=== PATIENT | male | born 1985 | race Caucasian/White ===

== ENCOUNTER 2020-06-12 04:02 | Emergency (ER) | payer OTHER ==
[~2020-06-12] VITALS: Ht 180.3 cm; Wt 102.2 kg
--- NOTE | 2020-06-12 04:07 | PHYS DOC ---
General Adult EDM: Chief Complaint: left ear pain HPI: HPI: Patient is a 34 year old male who presents for evaluation of moderate to severe left ear pain. Symptom onset earlier this evening. There is no drainage from the ear. There is no reported fevers and chills. The pain does radiate from his ear to the left side of his face. Patient drove himself to the hospital. Presenting blood pressure was 189/139 but we will recheck shortly. Review of Systems: Review of Systems: Constitutional: Denies fever or chills Eyes: Denies change in visual acuity HENT: Denies nasal congestion or sore throat, severe left ear pain Respiratory: Denies cough or shortness of breath Cardiovascular: Denies chest pain or edema GI: Denies abdominal pain, nausea, vomiting, bloody stools or diarrhea : Denies dysuria Musculoskeletal: Denies back pain or joint pain Integument: Denies rash Neurologic: Denies headache, focal weakness or sensory changes Endocrine: Denies polyuria or polydipsia Lymphatic: Denies swollen glands Psychiatric: Denies depression or anxiety Heart Score: Risk Factors: Risk Factors: DM, Current or recent (<one month) smoker, HTN, HLP, family history of CAD, obesity. Risk Scores: Score 0 - 3: 2.5% MACE over next 6 weeks - Discharge Home Score 4 - 6: 20.3% MACE over next 6 weeks - Admit for Clinical Observation Score 7 - 10: 72.7% MACE over next 6 weeks - Early Invasive Strategies Physical Exam: PE: Constitutional: Well developed, well nourished, moderate acute distress, non- toxic appearing. [] HENT: Normocephalic, atraumatic, bilateral external ears normal, oropharynx moist, no oral exudates, nose normal, neither tympanic membrane clearly visualize due to wax buildup. [] Eyes: PERRL, EOMI, conjunctiva normal, no discharge. [] Neck: Normal range of motion, no tenderness, supple, no stridor. [] Cardiovascular:Heart rate regular rhythm, no murmur [] Lungs & Thorax: Bilateral breath sounds clear to auscultation [] Abdomen: Bowel sounds normal, soft, no tenderness, no masses. [] Skin: Warm, dry, no erythema, no rash. [] Back: No tenderness. [] Extremities: No tenderness, no cyanosis, ROM intact, no edema. [] Neurologic: Alert and oriented X 3, normal motor function, normal sensory function, no focal deficits noted. [] Psychologic: Affect normal, judgement normal, mood normal. [] EKG: EKG: [] Radiology/Procedures: Radiology/Procedures: [] Course & Med Decision Making: Course & Med Decision Making Pertinent Labs and Imaging studies reviewed. (See chart for details) [] Dragon Disclaimer: Dragon Disclaimer: This electronic medical record was generated, in whole or in part, using a voice recognition dictation system. 0425 left ear rechecked after nursing staff flushed with warm saline thoroughly. Several large chunks of earwax were removed. Part of the eardrum is now partially visualized and it was erythematous. There was some canal erythema as well. No bleeding however. No obvious evidence of a ruptured eardrum 0503 patient states left ear pain is persistent but improved. Blood pressure now 150/109. Prescription for tramadol and amoxicillin given. Referral to ENT given as well for Dr. Daly Carrasco [place] Departure: Impression: Primary Impression: Left acute otitis media Additional Impressions: Impacted cerumen of both ears Elevated blood pressure reading Disposition: HOME/RESIDENCE PRIOR TO ADM Condition: STABLE Referrals: PCP,NO (PCP) Patient Instructions: Cerumen Impaction, Managing Your High Blood Pressure, Otitis Media, Adult Additional Instructions: Have your doctor recheck your ear in the next couple of days or you can see your nose and throat specialist such as Dr. Daly Carrasco at [phone], use Cortisporin eardrops 4 drops 4 times a day left ear for the next 5 to 7 days Scripts Tramadol Hcl (TRAMADOL HCL) 50 Mg Tablet 50 MG PO PRN Q6HRS PRN for PAIN, #10 TAB Prov: DENISHA TROTTER DO 06/12/20 Amoxicillin (AMOXICILLIN) 875 Mg Tablet 1 TAB PO BID for otitis media, #14 TAB Prov: DENISHA TROTTER DO 06/12/20 Justification of Admission: Justification of Admission: Justification of Admission Dx: N/A DENISHA TROTTER DO Jun 12, 2020 04:07
[2020-06-12] MEDS ORDERED: KETOROLAC 15 MG/ML VIAL. IVP ONE (04:30)
[2020-06-12] MEDS ORDERED: traMADol 50 MG TABLET PO ONE (04:30)
[2020-06-12] MEDS ORDERED: NEOMYCIN/POLYMYXIN/HC OTIC SUSPENSION 10ML BOTTLE. AS ONE (04:30)
[2020-06-12] MEDS ORDERED: TRAM50TA PO (04:35)
[2020-06-12] MEDS ORDERED: AMOX875T PO (04:35)
[2020-06-12] MEDS ORDERED: KETOROLAC 30 MG/ML VIAL. ONE (05:00)
[2020-06-12] MEDS ORDERED: KETOROLAC 30 MG/ML VIAL. IM ONE (05:00)
[2020-06-12] MEDS ORDERED: KETOROLAC 60 MG/2 ML VIAL. IM ONE (05:00)
[2020-06-12 05:25] VITALS: BP 150/107
== END 2020-06-12 05:28 | disposition home or self-care (01) ==
LOC: ER 04:02
DX: H66.92 Otitis media, unspecified, left ear (principal); H61.23 Impacted cerumen, bilateral; R03.0 Elevated blood-pressure reading, without diagnosis of hypertension
CPT/HCPCS: 69209; 96372; 99284; J1885

== ENCOUNTER 2020-06-14 18:54 | Emergency (ER) | payer OTHER ==
[~2020-06-14] VITALS: Ht 180.3 cm; Wt 102.2 kg
[~2020-06-14 18:54] MED LIST: AMOX875T PO; TRAM50TA PO
[2020-06-14 19:00] VITALS: BP 158/97
--- NOTE | 2020-06-14 19:45 | PHYS DOC ---
Past History Past Medical History: No Pertinent History Past Surgical History: No Surgical History Alcohol Use: None General Adult EDM: Chief Complaint: MULTIPLE COMPLAINTS HPI: HPI: 34 yo M presents to the ed with c/o red/yellow drainage from his left ear with associated dizziness with certain head positions and nausea. States it's difficult to hear out of his left ear but the pain he was experiencing has resolved. Denies any trauma to the ear. Patient was prescribed amoxicillin, Cortisporin and tramadol 2 days ago in ed, diagnosed with bilateral cerumen impaction left otitis media. Reports he has to fly in 4 days due to the drainage wanted to get it checked out to see if it was he healing appropriately. Has been on antibiotics for only 3 days. Denies any falls or head trauma. ROS: Denies associated fever, chills, headache, blurry vision, neck pain, neck stiffness, sore throat, cough, chest pain or pressure, syncope, neurologic deficits including sensory or motor deficits, changes in voice, drooling or other concerning symptoms. Allergies: Allergies: Allergies Coded Allergies Type Severity Reaction Last Updated Verified No Known Drug Allergies 06/12/20 No Physical Exam: PE: Constitutional: Well developed, well nourished, no acute distress, non-toxic appearance. [] Afebrile HENT: Normocephalic, atraumatic, right ear w/ cerumen impaction, left ear clear with some erythema of the external canal around 6 o'clock position, entire left tympanic membrane is erythematous with bulging TM w/air/fluid level, pt w/kleenexes in external canal-yellow/red drainage, no mastoid tenderness, no obliteration of auricular crease, near symmetric Eyes: EOMI, conjunctiva normal, no discharge. [] Neck: Normal range of motion, no tenderness, supple, no stridor. [] No meningismus Cardiovascular:Heart rate regular rhythm, no murmur [] Lungs & Thorax: Speaking in full sentences, equal chest rise Abdomen: soft, no tenderness, Skin: Warm, dry, no erythema, no rash. [] Back: No midline or cva tenderness, Extremities: No tenderness, no cyanosis, no clubbing, no edema. [] Neurologic: Alert and oriented X 3, normal motor function, normal sensory function, no focal deficits noted. [] Psychologic: Affect normal, judgement normal, mood normal. [] Current Patient Data: Vital Signs: Vital Signs Date Time Temp Pulse Resp B/P (MAP) Pulse Ox O2 Delivery O2 Flow Rate FiO2 06/14/20 19:00 98.1 94 18 158/97 (117) 98 Room Air EKG: EKG: [] Radiology/Procedures: Radiology/Procedures: [] Course & Med Decision Making: Course & Med Decision Making Pertinent Labs and Imaging studies reviewed. (See chart for details) Patient presents the ED for left ear check after starting on antibiotics for otitis media. Patient complains of otorrhea, left ear still infected but healing appropriately. External canal slightly erythematous. Will have patient discontinue his Cortisporin and start Ciprodex. Will also prescribe meclizine and Zofran. I advised against flying - could worsen pain, exacerbate vertigo or cause baraotrauma/ruptured TM. Will continue oral antibiotics prescribed x10 days and have pt re-evaluated. Life-threatening processes were considered but are low suspicion given patient's history and physical exam. Encouraged outpatient ENT follow-up along with PMD follow-up. All patient's questions were answered and he was stable at time of discharge. Differential includes ginette's angina, mastoiditis, trauma, peritonsillar abscess, retropharyngeal abscess, epiglottitis, bacterial tracheitis, uvulitis, sepsis I spoken with the patient and her caregivers. I explained the patient's condition, diagnoses and treatment plan based on the information available to me at this time. I have answered the patient and her caregiver's questions and addressed any concerns. The patient and her caregivers have a good understanding of patient's diagnosis, condition and treatment plan as can be expected at this point. Vital signs have been stable. Patient's condition is stable and appropriate for discharge from the emergency department. Patient will pursue further outpatient evaluation with primary care physician or other designated or consulting physician as outlined in the discharge instructions. The patient and/or caregivers are agreeable to this plan of care and follow-up instructions have been explained in detail. The patient and/or caregivers have received these instructions in written form and have expressed an understanding of the discharge instructions. The patient and/or caregivers are aware that any significant change of condition or worsening of symptoms should prompt immediate return to this or the closest emergency department or call to 911. Sachin Disclaimer: Sachin Disclaimer: This electronic medical record was generated, in whole or in part, using a voice recognition dictation system. Departure Departure: Impression: Primary Impression: Otorrhea of left ear Additional Impressions: Otitis media Otitis externa Disposition: 01 HOME/RESIDENCE PRIOR TO ADM Condition: STABLE Referrals: PCP,NO (PCP) Patient Instructions: Otitis Externa, Otitis Media with Effusion Additional Instructions: If worsens, follow up with ENT specialist (ear, nose and throat) Dr. Daly Carrasco [address] [facility], [address] [place] [address] Hearing Center: [phone] Scripts Meclizine Hcl (MECLIZINE HCL) 12.5 Mg Tablet 1 TAB PO TID for vertigo, #20 TAB 0 Refills Prov: REBECCA CHEEMA DO 06/14/20 Ondansetron Hcl (ZOFRAN) 4 Mg Tablet 1 TAB PO PRN Q6HRS PRN for NAUSEA, #15 TAB Prov: REBECCA CHEEMA DO 06/14/20 Ciprofloxacin Hcl/Dexameth (CIPRODEX OTIC SUSPENSION) 7.5 Ml Drops.susp 4 DROP LEFT EAR BID for otitis externa for 7 Days, #1 BOTTLE Prov: REBECCA CHEEMA DO 06/14/20 Justification of Admission: Justification of Admission: Justification of Admission Dx: N/A REBECCA CHEEMA DO Jun 14, 2020 19:45
[2020-06-14] MEDS ORDERED: ONDA4TAB7 PO (20:01)
[2020-06-14] MEDS ORDERED: CIPR7.5D LEFT EAR (20:01)
[2020-06-14] MEDS ORDERED: MECL12.573 PO (20:01)
== END 2020-06-14 20:10 | disposition home or self-care (01) ==
LOC: ER 18:54
DX: H92.12 Otorrhea, left ear (principal); H66.92 Otitis media, unspecified, left ear; H60.92 Unspecified otitis externa, left ear; R42 Dizziness and giddiness; H61.21 Impacted cerumen, right ear
CPT/HCPCS: 99283